=== PATIENT | female | born 1990 | race Caucasian/White ===

== ENCOUNTER 2020-01-07 17:12 | Emergency (ER) | payer OTHER ==
[~2020-01-07] VITALS: Ht 157.5 cm; Wt 63.5 kg
== END 2020-01-07 18:29 | disposition home or self-care (01) ==
LOC: ED 17:12
DX: T18.9XXA Foreign body of alimentary tract, part unspecified, initial encounter (principal); Z87.891 Personal history of nicotine dependence
CPT/HCPCS: 71046; 74018; 99283-25